=== PATIENT | female | born 1950 | race Caucasian/White ===

== ENCOUNTER 2019-03-02 09:24 | Day surgery (SDC) | payer MEDICARE, OTHER ==
[~2019-03-02] VITALS: Ht 157.5 cm; Wt 68.8 kg
[~2019-03-02 09:24] MED LIST: ALLO300 PO; ATOR20 PO; CARV25 PO; DIALYVITE50000 UNIT PO; FURO40 PO; K-Dur20 MEQ PO; LEVO-T100 MCG PO; LEVSOD88 PO; Lasix80 MG PO; METF500C PO; NITR.4SL SL; OMEPRAZOLE MAGN20 MG; PANT20 PO; RANI150; SPIR25 PO; Zanaflex2 M1 PO
== END 2019-03-02 11:30 | disposition home or self-care (01) ==
LOC: ORSCSDS 09:24
PROVIDERS: Internal Medicine Gastroenterology
PROC: 0DBK8ZX Excision of Ascending Colon, Via Natural or Artificial Opening Endoscopic, Diagnostic (ICD-10-PCS; principal; 2019-03-02 11:00)
PROC: 0DB68ZX Excision of Stomach, Via Natural or Artificial Opening Endoscopic, Diagnostic (ICD-10-PCS; principal; 2019-03-02 11:00)
PROC: 0DB98ZX Excision of Duodenum, Via Natural or Artificial Opening Endoscopic, Diagnostic (ICD-10-PCS; principal; 2019-03-02 11:00)
PROC: 0DB58ZX Excision of Esophagus, Via Natural or Artificial Opening Endoscopic, Diagnostic (ICD-10-PCS; principal; 2019-03-02 11:00)
DX: D50.9 Iron deficiency anemia, unspecified (principal); D12.2 Benign neoplasm of ascending colon; K63.89 Other specified diseases of intestine; K44.9 Diaphragmatic hernia without obstruction or gangrene; K20.9 Esophagitis, unspecified; K26.9 Duodenal ulcer, unspecified as acute or chronic, without hemorrhage or perforation; K57.30 Diverticulosis of large intestine without perforation or abscess without bleeding; K64.8 Other hemorrhoids; K64.4 Residual hemorrhoidal skin tags; I10 Essential (primary) hypertension; E11.9 Type 2 diabetes mellitus without complications; E03.9 Hypothyroidism, unspecified; Z79.899 Other long term (current) drug therapy; Z79.84 Long term (current) use of oral hypoglycemic drugs
CPT/HCPCS: 82947; 88305; 88312; 88342; J2704; J7120

== ENCOUNTER → 2019-09-21 | Outpatient (CLI) | payer MEDICARE, OTHER ==
[2019-09-22 14:47] LABS: Adenovirus F 40/41 Not Detected (NOT DETECT); Astrovirus Not Detected (NOT DETECT); Campylobacter Sp Not Detected (NOT DETECT); Cryptosporidium Not Detected (NOT DETECT); Cyclospora Cayetanensis Not Detected (NOT DETECT); E. Coli O157 Not Detected (NOT DETECT); Entamoeba Histolytica Not Detected (NOT DETECT); Enteroaggregative E. coli-EAEC Not Detected (NOT DETECT); Enteropathogenic E. coli-EPEC Not Detected (NOT DETECT); Enterotoxigenic E. coli-ETEC Not Detected (NOT DETECT); Giardia Lamblia Not Detected (NOT DETECT); Norovirus GI/GII Not Detected (NOT DETECT); Plesiomonas Shigelloides Not Detected (NOT DETECT); Rotavirus A Not Detected (NOT DETECT); Salmonella Sp Not Detected (NOT DETECT); Sapovirus Not Detected (NOT DETECT); Shiga Toxin-prod E. coli-STEC Not Detected (NOT DETECT); Shigella/Enteroin E. coli-EIEC Not Detected (NOT DETECT); Vibrio Cholerae Not Detected (NOT DETECT); Vibrio Sp Not Detected (NOT DETECT); Yersinia Enterocolitica Not Detected (NOT DETECT)
== END | disposition home or self-care (01) ==
LOC: LAB 10:37 → LAB SHORT 10:37 → LAB FUT 09-17 10:50
PROVIDERS: Internal Medicine Gastroenterology
DX: R19.7 Diarrhea, unspecified (principal)
CPT/HCPCS: 0097U

== ENCOUNTER 2021-04-15 22:09 | Emergency (ER) | payer MEDICARE, OTHER ==
[~2021-04-15] VITALS: Ht 157.5 cm; Wt 68.0 kg
[2021-04-15 22:57] LABS: BASOPHILS ABSOLUTE AUTO 0.06 K/mm3 (0.00-0.23); BASOPHILS PERCENT AUTO 1 % (0-2); EOSINOPHILS PERCENT AUTO 5 % (0-6); Hematocrit 39.4 % (33.0-51.0); Hemoglobin 13.1 g/dL (11.5-16.0); IMMATURE GRAN ABSOLUTE AUTO 0.03 K/mm3 (0.00-0.10); IMMATURE GRAN PERCENT AUTO 0 % (0-1); LYMPHOCYTES ABSOLUTE AUTO 3.07 K/mm3 (0.84-5.20); LYMPHOCYTES PERCENT AUTO 38 % (21-46); MONOCYTES ABSOLUTE AUTO 0.59 K/mm3 (0.16-1.47); MONOCYTES PERCENT AUTO 7 % (4-13); Mean Corpuscular HGB Conc 33.2 g/dL (31.5-36.5); Mean Corpuscular Volume 93 fL (80-100); Mean Platelet Volume 9.1 fL (9.1-12.4); NEUTROPHILS PERCENT AUTO 49 % (41-73); Platelet Count 237 K/mm3 (150-400); RDW Coefficient Variation 14.6 % (11.7-14.2); RDW Standard Deviation 50.5 fL (35.1-46.3); Red Blood Cell Count 4.23 M/mm3 (3.80-5.20); White Blood Cell Count 8.05 K/mm3 (4.00-11.30)
[2021-04-15 23:18] LABS: Alanine Aminotransfer (ALT/SGP 26 U/L (12-78); Albumin, Blood 3.5 g/dL (3.4-5.0); Albumin/Globulin Ratio 0.9 (0.8-1.8); Alk Phos 87 U/L (50-136); Anion Gap 6 mmol/L (6-16); Aspartate Aminotrans (AST/SGOT 21 U/L (12-37); Bilirubin, Total 0.3 mg/dL (0.1-1.0); Blood Urea Nitrogen 12 mg/dL (8-24); Bun/Creatinine Ratio 12.8 (12.0-20.0); CO2, Blood 26 mmol/L (21-32); Calcium, Blood 8.9 mg/dL (8.5-10.1); Chloride, Blood 110 mmol/L (98-108); Creatinine, Blood 0.94 mg/dL (0.40-1.00); Globulin, Blood 3.8 g/dL (2.2-4.0); Glomerular Filtration Rate 59 (60-); Glucose, Blood 122 mg/dL (70-99); Potassium, Blood 3.4 mmol/L (3.5-5.5); Sodium, Blood 142 mmol/L (136-145); Total Protein, Blood 7.3 g/dL (6.4-8.2); Troponin I <0.015 ng/mL (0.000-0.040)
== END 2021-04-16 01:42 | disposition home or self-care (01) ==
LOC: ER 22:09
PROVIDERS: Emergency Medicine
DX: R07.89 Other chest pain (principal); I10 Essential (primary) hypertension; E11.9 Type 2 diabetes mellitus without complications; D50.9 Iron deficiency anemia, unspecified; Z79.84 Long term (current) use of oral hypoglycemic drugs; Z79.899 Other long term (current) drug therapy
CPT/HCPCS: 36415; 71046; 80053; 83690; 84484; 85025; 93005; 93010; 99285-25

== ENCOUNTER → 2021-08-08 | Outpatient (CLI) | payer MEDICARE, OTHER | END | disposition home or self-care (01) | LOC: LAB 07:57 → LAB SHORT 07:57 | DX: L82.1 Other seborrheic keratosis (principal) | CPT/HCPCS: 88305 ==

== ENCOUNTER → 2022-01-17 | Outpatient (CLI) | payer MEDICARE, OTHER ==
[2022-01-17 14:36] LABS: Adenovirus F 40/41 Not Detected (NOT DETECT); Astrovirus Not Detected (NOT DETECT); Campylobacter Sp Not Detected (NOT DETECT); Cryptosporidium Not Detected (NOT DETECT); Cyclospora Cayetanensis Not Detected (NOT DETECT); E. Coli O157 Not Detected (NOT DETECT); Entamoeba Histolytica Not Detected (NOT DETECT); Enteroaggregative E. coli-EAEC Not Detected (NOT DETECT); Enteropathogenic E. coli-EPEC Not Detected (NOT DETECT); Enterotoxigenic E. coli-ETEC Not Detected (NOT DETECT); Giardia Lamblia Not Detected (NOT DETECT); Norovirus GI/GII Not Detected (NOT DETECT); Plesiomonas Shigelloides Not Detected (NOT DETECT); Rotavirus A Not Detected (NOT DETECT); Salmonella Sp Not Detected (NOT DETECT); Sapovirus Not Detected (NOT DETECT); Shiga Toxin-prod E. coli-STEC Not Detected (NOT DETECT); Shigella/Enteroin E. coli-EIEC Not Detected (NOT DETECT); Vibrio Cholerae Not Detected (NOT DETECT); Vibrio Sp Not Detected (NOT DETECT); Yersinia Enterocolitica Not Detected (NOT DETECT)
== END ==
LOC: LAB 08:00 → LAB SHORT 08:00
PROVIDERS: Nurse Practitioner Family
DX: R19.7 Diarrhea, unspecified (principal)
CPT/HCPCS: 87507

== ENCOUNTER → 2022-02-06 | Outpatient (CLI) | payer MEDICARE, OTHER | END | disposition home or self-care (01) | LOC: LAB SHORT 14:25 → LAB 14:25 | DX: A49.8 Other bacterial infections of unspecified site (principal); Z86.19 Personal history of other infectious and parasitic diseases | CPT/HCPCS: 87070; 87205 ==

== ENCOUNTER 2022-02-26 09:07 | Inpatient (IN) | payer MEDICARE, OTHER ==
[~2022-02-26] VITALS: Ht 157.5 cm; Wt 69.7 kg
[2022-02-26] MEDS ORDERED: CETI5 PO (09:52)
--- NOTE | 2022-02-26 12:12 | NUR ---
02/26/22 1212 Kathryn Abraham 0.5% BUPIVACAINE MIXED WITH 0.15ML EPINEPHRINE FOR LOCAL INJECTION BY ORD.CD .
--- NOTE | 2022-02-26 15:43 | NUR ---
ARRIVAL PT ARRIVED TO UNIT FROM PACU AT 1530. PT DENIES PAIN CURRENTLY AND DENIES NAUSEA. ON 2L NASAL CANULA ON ARRIVAL WILL TITRATE OFF PATIENT TOLERATES. SHE DENIES SOB. SMALL AMOUNT SANGUINOUS DRAINAGE ON PERIPAD AND TERAN PAD. CHANGED ON ARRIVAL. ANDERSON IN PLACE, PATENT AND DRAINING. PROVIDED WATER AND JELLO TO PATIENT CURRENTLY TOLERATING WELL. IN ROOM AND CALL LIGHT IN REACH. PT PLANS TO TAKE A NAP.
--- NOTE | 2022-02-26 17:05 | NUR ---
SHIFT SUMMARY PT REPORTS PAIN IS IMPROVED SINCE ARRIVAL TO UNIT, SHE IS AWAKE AND ORIENTED. SHE REPORTS WANTING TO GO FOR A WALK AFTER DINNER. SMALL AMOUNT OF DRAINAGE ON LUPE PAD, CHANGED AGAIN. TOLERATING PO WELL, DRINKING FLUIDS. ANDERSON REMAINS PATENT AND DRAINING. CONTINUING TO TITRATE OXYGEN PATIENT TOLERATES.
--- NOTE | 2022-02-26 18:28 | NUR ---
pt up and ambulated well in the hallway, no weakness with ambulation. pt reports feeling better with ambulation.
--- NOTE | 2022-02-27 04:08 | NUR ---
SHIFT SUMMARY NO ACUTE CHANGES. PT RESTED WELL T/O SHIFT. REPORTS MILD ABD CRAMPING AND CHRONIC BACK PAIN WHICH SHE HAS BEEN USING THE KPAD FOR COMFORT AND TYLENOL PRN. PT INDEP IN ROOM AND HALLWAY WITH AMBULATION. SMALL AMOUNT VAGINAL BLEEDING NOTED ON LUPE PAD. ANDERSON INTACT AND DRAINING YELLOW URINE. PLAN TO D/C ANDERSON BEFORE END OF SHIFT PER ORDERS. CALL LIGHT WITHIN REACH.
--- NOTE | 2022-02-27 09:23 | NUR ---
PER DR. PEPPER IT IS OKAY FOR PATIENT TO DISCHARGE ONCE SHE VOIDS. SHE WILL CONTINUE ALL HOME MEDS, MAINTAIN PELVIC REST FOR 8 WEEKS, AND NO LIFTING GREATER THAN 15 POUNDS FOR 8 WEEKS.
--- NOTE | 2022-02-27 10:24 | NUR ---
DISCHARGE POD 1 VAGINAL HYSTERECTOMY PT HAS DENIED PAIN DURING SHIFT. SHE HAS BEEN AMBULATING FREQUENTLY. VOIDED LARGE AMOUNT, REPORTS FEELING BETTER WITH VOIDING. ALL INSTRUCTIONS GONE OVER WITH PATIENT, IV REMOVED. PT DENIED FURTHER QUESTIONS. MINIMAL DRAINAGE ON LUPE PADS TODAY. PT HAS BEEN CHANGING INDEPENDENTLY. SHE PLANS TO FOLLOW UP WITH DR. PEPPER SCHEDULED.
== END 2022-02-27 10:20 | disposition home or self-care (01) | DRG 743 ==
LOC: SURS 09:07 → PRE IP 11:30 → SURS 14:49
PROVIDERS: ADMIT Obstetrics & Gynecology
PROC: 0JQC0ZZ Repair Pelvic Region Subcutaneous Tissue and Fascia, Open Approach (ICD-10-PCS; 2022-02-26)
PROC: 0TSD0ZZ Reposition Urethra, Open Approach (ICD-10-PCS; 2022-02-26)
PROC: 0UT98ZZ Resection of Uterus, Via Natural or Artificial Opening Endoscopic (ICD-10-PCS; principal; 2022-02-26 11:30)
PROC: 0UQF8ZZ Repair Cul-de-sac, Via Natural or Artificial Opening Endoscopic (ICD-10-PCS; 2022-02-26 11:30)
PROC: 0JQC0ZZ Repair Pelvic Region Subcutaneous Tissue and Fascia, Open Approach (ICD-10-PCS; 2022-02-26 11:30)
DX: N81.89 Other female genital prolapse (principal); N81.11 Cystocele, midline; N81.6 Rectocele; N39.3 Stress incontinence (female) (male); E03.9 Hypothyroidism, unspecified; E78.5 Hyperlipidemia, unspecified; I10 Essential (primary) hypertension; K21.9 Gastro-esophageal reflux disease without esophagitis; Z87.19 Personal history of other diseases of the digestive system; Z98.890 Other specified postprocedural states; Z88.8 Allergy status to other drugs, medicaments and biological substances; Z79.899 Other long term (current) drug therapy; Z79.01 Long term (current) use of anticoagulants; Z79.02 Long term (current) use of antithrombotics/antiplatelets; Z79.84 Long term (current) use of oral hypoglycemic drugs; Z86.19 Personal history of other infectious and parasitic diseases
CPT/HCPCS: 82947; 88307; A9270; C1771; J0171; J0690; J1100; J1885; J2250; J2370; J2405; J2704; J3010; J7120

== ENCOUNTER → 2022-04-12 | Outpatient (CLI) | payer MEDICARE, OTHER ==
[~2022-04-12] MED LIST changes: +CETI5 PO
[2022-04-12 13:51] LABS: Candida species (DNA Probe) Negative (NEGATIVE); G. vaginalis (DNA Probe) Negative (NEGATIVE); T. vaginalis (DNA Probe) Negative (NEGATIVE)
== END ==
LOC: LAB SHORT 09:04 → LAB 09:04
PROVIDERS: Obstetrics & Gynecology
DX: G89.18 Other acute postprocedural pain (principal)
CPT/HCPCS: 87480; 87510; 87660

== ENCOUNTER 2023-04-19 22:39 | Emergency (ER) | payer MEDICARE, OTHER ==
[~2023-04-19] VITALS: Ht 154.9 cm; Wt 65.8 kg
[2023-04-19 23:18] VITALS: BP 122/69
[2023-04-20 00:06] LABS: Influenza A, PCR NEGATIVE (NEGATIVE); Influenza B, PCR NEGATIVE (NEGATIVE); Resp Syncytial Virus, PCR NEGATIVE (NEGATIVE); SARS-Cov-2 (COVID-19) PCR, MMC NEGATIVE (NEGATIVE)
[2023-04-20] MEDS ORDERED: LISINOPRIL2.5 MG PO (00:08)
[2023-04-20] MEDS ORDERED: PRED20 PO (00:40)
[2023-04-20] MEDS ORDERED: ONDA4ODT MM (00:40)
[2023-04-20] MEDS ORDERED: ALBU90OI INH (00:40)
== END 2023-04-20 00:50 | disposition home or self-care (01) ==
LOC: ER 22:39
PROVIDERS: Physician Assistant
DX: J06.9 Acute upper respiratory infection, unspecified (principal); R11.0 Nausea; Z79.84 Long term (current) use of oral hypoglycemic drugs; Z79.890 Hormone replacement therapy; Z79.899 Other long term (current) drug therapy; I10 Essential (primary) hypertension; E11.9 Type 2 diabetes mellitus without complications; Z87.891 Personal history of nicotine dependence
CPT/HCPCS: 0241U; 71046; 99283-25

== ENCOUNTER → 2023-05-06 | Outpatient (CLI) | payer MEDICARE, OTHER ==
[~2023-05-06] MED LIST changes: +ALBU90OI INH; +LISINOPRIL2.5 MG PO; +ONDA4ODT MM; +PRED20 PO
[2023-05-06 15:40] LABS: Source, Urine Clean Catch
[2023-05-06 18:00] LABS: Appearance, Urine Hazy (Clear); Bilirubin, Urine Neg (Neg); Blood, Urine Neg (Neg); Color, Urine Yellow (P-Yellow); Glucose Qualitative, Urine Neg (Neg); Ketones, Urine Neg (Neg); Leukocyte Esterase, Urine 3+ (Neg); Nitrite, Urine Neg (Neg); Protein, Urine 1+ (Neg); Urobilinogen, Urine NORM (Normal)
[2023-05-06 18:13] LABS: Squamous Epithelial Cells Few /hpf (Few)
[2023-05-06 18:14] LABS: Bacteria Many /hpf; Mucus Light (0-Heavy); Transitional Epithelial Cells Rare /hpf (0-Rare)
[2023-05-07 12:27] LABS: Candida species (DNA Probe) Negative (NEGATIVE); G. vaginalis (DNA Probe) Negative (NEGATIVE); T. vaginalis (DNA Probe) Negative (NEGATIVE)
== END | disposition home or self-care (01) ==
LOC: LAB 15:38 → LAB SHORT 15:38
PROVIDERS: Obstetrics & Gynecology
DX: N30.00 Acute cystitis without hematuria (principal); R89.5 Abnormal microbiological findings in specimens from other organs, systems and tissues
CPT/HCPCS: 81001; 87077; 87086; 87186; 87480; 87510; 87660

== ENCOUNTER → 2023-10-28 | Outpatient (CLI) | payer MEDICARE, OTHER ==
[~2023-10-28] MED LIST changes: +JARDIANCE25 MG PO; +METF500 PO; +MICO100S VAG; +SULTRIDS PO; +VISBIOME 112.51 EACH PO
[2023-10-29 10:20] LABS: Stool Occult Bld Immuno 1 Negative (NEGATIVE)
== END | disposition home or self-care (01) ==
LOC: LAB 10:52 → LAB SHORT 10:52
PROVIDERS: Internal Medicine
DX: D53.9 Nutritional anemia, unspecified (principal)
CPT/HCPCS: 82274

== ENCOUNTER 2024-11-12 08:59 | Day surgery (SDC) | payer MEDICARE, OTHER ==
[2024-11-12] VITALS (30 sets, daily range): BP systolic 83–173; BP diastolic 65–96
[~2024-11-12] VITALS: Ht 154.9 cm; Wt 71.2 kg
[~2024-11-12 08:59] MED LIST changes: +Carvedilol12.5 MG PO; +LOSA50 PO
--- NOTE | 2024-11-12 10:15 | NUR ---
AMBULATORY INTO [facility]. HISTORY AND ALLERGIES REVIEWED. LUNGS CLEAR. SBP 170'S. NPO STATUS CONFIRMED. COLON PREP CONFIRMED. PT SPOUSE FAY IS HER RIDE HOME TODAY.
[2024-11-12] MEDS ORDERED: Benzocaine Oral Spray 0.5ML UD ONE (10:44)
--- NOTE | 2024-11-12 12:01 | NUR ---
PT DECLINES ANYTHING TO DRINK OR EAT. PT W/O COMPLAINT. Discharge instructions reviewed with patient. Patient verbalizes understanding. Copy given to patient to take home. Patient States Post-Procedure ride home has been arranged. Discharged via wheelchair to private car for ride home.
--- NOTE | 2024-11-16 08:13 | NUR ---
11/16/24 0813 Ivana Bush 1039- CONFIRMED AND REVIEWED H&P, MEDCICATIONS, ALLERGIES, MEDICAL HISTORY, RESPIRATORY HISTORY, VITAL SIGNS, 3-LEAD EKG, CONSENTS, AND PHYSICIAN ORDERS. PATIENT CONFIRMS NPO STATUS AND AGREES WITH SCHEDULED PROCEDURE. MONITOR INTACT WITH CONTINUOUS PULSE OXIMETRY, CAPNOGRAPHY, 3-LEAD EKG, INTERMITTENT BP. SUPPLEMENTAL O2 TO BE TITRATED THROUGHOUT PROCEDURE TO MAINTAIN O2 SATURATION ABOVE 90%. PATIENT DETERMINED TO BE ASA APPROPRIATE FOR PROPOFOL SEDATION PRIOR TO START OF PROCEDURE BY .
== END 2024-11-12 12:00 | disposition home or self-care (01) ==
LOC: ORSCMMR 08:59 → ORD 10:00 → ORSCMMR 12:00
PROVIDERS: Internal Medicine Gastroenterology
PROC: 0DB78ZX Excision of Stomach, Pylorus, Via Natural or Artificial Opening Endoscopic, Diagnostic (ICD-10-PCS; principal; 2024-11-12 10:00)
PROC: 0DBL8ZX Excision of Transverse Colon, Via Natural or Artificial Opening Endoscopic, Diagnostic (ICD-10-PCS; principal; 2024-11-12 10:00)
PROC: 0DB48ZX Excision of Esophagogastric Junction, Via Natural or Artificial Opening Endoscopic, Diagnostic (ICD-10-PCS; principal; 2024-11-12 10:00)
PROC: 0DBM8ZX Excision of Descending Colon, Via Natural or Artificial Opening Endoscopic, Diagnostic (ICD-10-PCS; principal; 2024-11-12 10:00)
PROC: 0DB98ZX Excision of Duodenum, Via Natural or Artificial Opening Endoscopic, Diagnostic (ICD-10-PCS; principal; 2024-11-12 10:00)
DX: K21.9 Gastro-esophageal reflux disease without esophagitis (principal); K62.5 Hemorrhage of anus and rectum; K26.0 Acute duodenal ulcer with hemorrhage; D12.3 Benign neoplasm of transverse colon; D12.4 Benign neoplasm of descending colon; Z86.0101 Personal history of adenomatous and serrated colon polyps; I10 Essential (primary) hypertension; E11.9 Type 2 diabetes mellitus without complications; E78.00 Pure hypercholesterolemia, unspecified; E03.9 Hypothyroidism, unspecified; Z79.899 Other long term (current) drug therapy
CPT/HCPCS: 82947; 88305; 88342; A9270; J2704; J7120

== ENCOUNTER → 2025-01-07 | Outpatient (CLI) | payer MEDICARE, OTHER ==
[2025-01-07 21:52] LABS: Creatinine, Urine Random 53.4 mg/dL (27.00-270.00); Microalb/Creat Ratio UR, Rand 18.427 mg/g (0.000-30.000); Microalbumin, Random Urine 9.84 mg/L (0.000-20.000)
== END ==
LOC: LAB 10:50 → LAB SHORT 10:50
PROVIDERS: Internal Medicine
DX: E11.22 Type 2 diabetes mellitus with diabetic chronic kidney disease (principal); E11.42 Type 2 diabetes mellitus with diabetic polyneuropathy; E11.59 Type 2 diabetes mellitus with other circulatory complications; E11.69 Type 2 diabetes mellitus with other specified complication
CPT/HCPCS: 82043; 82570

== ENCOUNTER → 2025-03-01 | Outpatient (CLI) | payer MEDICARE, OTHER ==
[2025-03-01 11:59] LABS: BASOPHILS ABSOLUTE AUTO 0.05 K/mm3 (0.00-0.23); BASOPHILS PERCENT AUTO 1 % (0-2); EOSINOPHILS ABSOLUTE AUTO 0.36 K/mm3 (0.00-0.68); EOSINOPHILS PERCENT AUTO 6 % (0-6); Hematocrit 36.7 % (33.0-51.0); Hemoglobin 11.8 g/dL (11.5-16.0); IMMATURE GRAN ABSOLUTE AUTO 0.01 K/mm3 (0.00-0.10); IMMATURE GRAN PERCENT AUTO 0 % (0-1); LYMPHOCYTES ABSOLUTE AUTO 2.46 K/mm3 (0.84-5.20); LYMPHOCYTES PERCENT AUTO 39 % (21-46); MONOCYTES ABSOLUTE AUTO 0.44 K/mm3 (0.16-1.47); MONOCYTES PERCENT AUTO 7 % (4-13); Mean Corpuscular HGB Conc 32.2 g/dL (31.5-36.5); Mean Corpuscular Volume 92 fL (80-100); NEUTROPHILS ABSOLUTE AUTO 2.99 K/mm3 (1.96-9.15); NEUTROPHILS PERCENT AUTO 47 % (41-73); NRBC ABSOLUTE 0.00 K/mm3 (0.00-0.02); NRBC Auto 0.0 /100 WBC (0.0-0.2); Platelet Count 205 K/mm3 (150-400); RDW Coefficient Variation 15.4 % (11.7-14.2); RDW Standard Deviation 51.7 fL (35.1-46.3)
[2025-03-01 12:09] LABS: Alanine Aminotransfer (ALT/SGP 20.0 U/L (12-78); Albumin, Blood 3.7 g/dL (3.4-5.0); Albumin/Globulin Ratio 0.9 (0.8-1.8); Anion Gap 12.0 mmol/L (3-11); Aspartate Aminotrans (AST/SGOT 22.0 U/L (12-37); Bilirubin, Total 0.5 mg/dL (0.1-1.0); Blood Urea Nitrogen 18.0 mg/dL (8-24); CO2, Blood 28.0 mmol/L (21-32); Calcium, Blood 9.1 mg/dL (8.5-10.1); Chloride, Blood 105.0 mmol/L (98-108); Creatinine, Blood 1.14 mg/dL (0.40-1.00); Globulin, Blood 3.9 g/dL (2.2-4.0); Glucose, Blood 104.0 mg/dL (70-99); Potassium, Blood 4.4 mmol/L (3.5-5.5); Sodium, Blood 141.0 mmol/L (136-145); Total Protein, Blood 7.6 g/dL (6.4-8.2)
== END ==
LOC: LAB SHORT 11:51 → LAB 11:51
PROVIDERS: Physician Assistant
DX: R10.32 Left lower quadrant pain (principal)
CPT/HCPCS: 80053; 83690; 85025